=== PATIENT | female | born 1960 | race Caucasian/White ===

== ENCOUNTER 2020-03-24 14:45 | Inpatient (IN) ==
[2020-03-24 15:14] LABS: ABG Base Excess -11 mEq/L (-2 to 3); ABG HCO3 18 mEq/L (21-27); ABG Oxygen Saturation 99 % (95-98); ABG PCO2 51 mmHg (35-45); ABG PH 7.16 pH Units (7.32-7.45); ABG PO2 179 mmHg (85-104); ABG TCO2 20 mEq/L (20-26)
[2020-03-24] MEDS ORDERED: DilTIAZem 50 MG/50 ML IV.SOLN IVC SCH (15:15)
[2020-03-24 15:17] LABS: Prothrombin Time 11.4 Seconds (9.4-12.1)
[2020-03-24] MEDS ORDERED: Isovue-370 500 ML BOTTLE IVP ONE (15:30)
[2020-03-24 15:36] LABS: BUN/Creatinine Ratio 15 (6-26); Blood Urea Nitrogen 8 mg/dL (8-23); Calcium 9.3 mg/dL (8.6-10.3); Carbon Dioxide 17 mEq/L (23-29); Chloride 91 mEq/L (98-107); Glucose 279 mg/dL (70-105); Osmolality,Calculated 270 (280-300); Potassium 4.6 mEq/L (3.5-5.1); Sodium 126 mEq/L (136-145); Troponin I 0.03 ng/mL (< 0.04); eGFR For African Americans > 60 (> 60); eGFR For Non-African Americans > 60 (> 60)
[2020-03-24 15:37] LABS: Basophils # 0.1 K/mcL (0.0-0.2); Basophils % 0.3 %; Eosinophils % 0.1 %; Hematocrit 40.4 % (35.3-44.9); Hemoglobin 13.2 g/dL (11.5-15.4); Immature Granulocytes % 0.9 % (0-4); Lymphocytes # 2.2 K/mcL (0.6-4.6); Lymphocytes % 12.1 %; Mean Corpuscular HGB Conc 32.7 g/dL (31.6-35.5); Mean Corpuscular Hemoglobin 32.4 pg (28.0-33.3); Mean Platelet Volume 12.1 fL (9.4-12.4); Monocytes # 0.4 K/mcL (0.0-1.3); Monocytes % 2.4 %; Neutrophils # 15.4 K/mcL (1.6-8.9); Platelet Count 260 K/mcL (140-400); Red Blood Count 4.08 M/mcL (3.82-4.97); Red Cell Distribution Width 11.9 % (11.5-14.5); Segmented Neutrophils % 84.2 %; White Blood Count 18.3 K/mcL (4.3-11.1)
[2020-03-24] MEDS ORDERED: Furosemide 40 MG/4 ML VIAL IVP ONE (16:16)
[2020-03-24 16:37] LABS: Adenovirus Not Detected (Not Detect); Bordetella Pertussis Not Detected (Not Detect); Chlamydophila pneumoniae Not Detected (Not Detect); Coronavirus 229E Not Detected (Not Detect); Coronavirus HKU1 Not Detected (Not Detect); Coronavirus NL63 Not Detected (Not Detect); Coronavirus OC43 Not Detected (Not Detect); Human Metapneumovirus Not Detected (Not Detect); Human Rhinovirus/Enterovirus Not Detected (Not Detect); Influenza A Subtype 2009 H1 Not Detected (Not Detect); Influenza B Not Detected (Not Detect); Mycoplasma pneumoniae Not Detected (Not Detect); Parainfluenza Virus 1 Not Detected (Not Detect); Parainfluenza Virus 2 Not Detected (Not Detect); Parainfluenza Virus 3 Not Detected (Not Detect); Parainfluenza Virus 4 Not Detected (Not Detect); Respiratory Syncytial Virus Not Detected (Not Detect); SARS-CoV-2 Not Detected (Not Detect)
[2020-03-24 17:17] LABS: ABG Base Excess -2 mEq/L (-2 to 3); ABG HCO3 23 mEq/L (21-27); ABG Oxygen Saturation 100 % (95-98); ABG PCO2 38 mmHg (35-45); ABG PH 7.38 pH Units (7.32-7.45); ABG PO2 203 mmHg (85-104); ABG TCO2 24 mEq/L (20-26)
[2020-03-24] MEDS ORDERED: Insulin Human Regular 100 UNIT in 0.9 % Sodium Chloride 100 ML IVC SCH (17:30)
[2020-03-24] MEDS ORDERED: Perflutren Lipid Microsphere 1.3 ML in 0.9 % Sodium Chloride 8.7 ML IVP PRN (17:56)
[2020-03-24] MEDS ORDERED: D5% in Water 1,000 ML IVC PRN (18:03)
[2020-03-24] MEDS ORDERED: Dextrose Gel 15 GM/37.5 ML TUBE PO PRN ×2 (18:03)
[2020-03-24] MEDS ORDERED: *HR* Dextrose 50 % in Water (Vial) 50 ML VIAL IVP PRN (18:03)
[2020-03-24] MEDS: Levalbuterol Neb 0.63 MG/3 ML IH SCH ×2 (18:12→22:49)
[2020-03-24] MEDS ORDERED: Ondansetron 4 MG/2 ML VIAL IVP PRN (18:13)
[2020-03-24] MEDS ORDERED: Naloxone 0.4 MG/ML INJ IVP PRN (18:13)
[2020-03-24] MEDS ORDERED: Acetaminophen 325 MG TABLET PO PRN (18:13)
[2020-03-24] MEDS ORDERED: Insulin DETEMIR 100 UNIT/ML X5UNITS SUBQ SCH (18:15)
[2020-03-24] MEDS: Insulin DETEMIR 100 UNIT/ML X5UNITS SUBQ SCH (18:55)
[2020-03-24 19:05] LABS: Lipase 13 Units/L (11-82)
[2020-03-24] MEDS: Insulin LISPRO 300 UNITS/3 ML VIAL SUBQ SCH (22:10)
[2020-03-24] MEDS ORDERED: *HR* Heparin 5,000 UNIT/ML VIAL IVP PRN (23:23)
[2020-03-24] MEDS ORDERED: *HR* Heparin 5,000 UNIT/ML VIAL IVP ONE (23:23)
[2020-03-25 00:30] LABS: Hematocrit 33.2 % (35.3-44.9); Mean Corpuscular HGB Conc 34.3 g/dL (31.6-35.5); Mean Corpuscular Hemoglobin 32.8 pg (28.0-33.3); Mean Corpuscular Volume 95.4 fL (83.0-100.0); Mean Platelet Volume 11.5 fL (9.4-12.4); Platelet Count 202 K/mcL (140-400); Red Blood Count 3.48 M/mcL (3.82-4.97)
[2020-03-25 00:31] LABS: Hemoglobin 11.4 g/dL (11.5-15.4); White Blood Count 8.4 K/mcL (4.3-11.1)
[2020-03-25 00:41] LABS: Heparin anti-factor XA UFH < 0.04 IU/mL (0.30-0.70); Prothrombin Time 11.8 Seconds (9.4-12.1)
[2020-03-25] MEDS: Heparin 25,000UNIT/250ML 1/2NS 25,000 UNIT/250 ML IV.SOLN IVC SCH (01:19)
[2020-03-25 02:47] LABS: Hematocrit 33.9 % (35.3-44.9); Hemoglobin 11.5 g/dL (11.5-15.4); Mean Corpuscular HGB Conc 33.9 g/dL (31.6-35.5); Mean Corpuscular Hemoglobin 32.2 pg (28.0-33.3); Mean Platelet Volume 11.5 fL (9.4-12.4); Platelet Count 196 K/mcL (140-400); Red Blood Count 3.57 M/mcL (3.82-4.97); White Blood Count 10.1 K/mcL (4.3-11.1)
[2020-03-25 02:48] LABS: VBG HCO3 25 mEq/L (21-27); VBG PCO2 36 mmHg (41-51); VBG PH 7.45 pH Units (7.32-7.42); VBG PO2 220 mmHg (25-50)
[2020-03-25 03:07] LABS: Alanine Aminotransferase 17 Units/L (7-52); Albumin 4.2 g/dL (3.5-5.7); Albumin/Globulin Ratio 1.7 (1.1-2.2); Alkaline Phosphatase 43 Units/L (34-104); Aspartate Amino Transferase 32 Units/L (13-39); BUN/Creatinine Ratio 18 (6-26); Bilirubin,Total 0.5 mg/dL (0.3-1.0); Blood Urea Nitrogen 11 mg/dL (8-23); Calcium 8.9 mg/dL (8.6-10.3); Carbon Dioxide 22 mEq/L (23-29); Chloride 93 mEq/L (98-107); Globulin 2.5 g/dL (2.4-3.5); Glucose 118 mg/dL (70-105); Osmolality,Calculated 266 (280-300); Potassium 4.4 mEq/L (3.5-5.1); Sodium 128 mEq/L (136-145); Total Protein 6.7 g/dL (6.4-8.9); eGFR For African Americans > 60 (> 60); eGFR For Non-African Americans > 60 (> 60)
[2020-03-25] MEDS: Levalbuterol Neb 0.63 MG/3 ML IH SCH ×4 (04:12→23:14)
[2020-03-25] MEDS ORDERED: *HR* Heparin 5,000 UNIT/ML VIAL SQ SCH (06:00)
[2020-03-25] MEDS ORDERED: Aspirin 325 MG TABLET PO ONE (07:45)
[2020-03-25 08:29] LABS: Chol/HDL Ratio 3.2 (0-4.9)
[2020-03-25 08:36] LABS: Troponin I 2.75 ng/mL (< 0.04)
[2020-03-25] MEDS: *HR* Heparin 5,000 UNIT/ML VIAL IVP PRN ×2 (08:47→17:09)
[2020-03-25 09:46] LABS: Bilirubin,Urine Negative (Negative); Blood,Urine Negative (Negative); Clarity,Urine Clear (Clear); Color,Urine Colorless (Yellow); Glucose,Urine (UA) 300 mg/dL (Normal); Hyaline Casts,Urine Few per lpf (None Seen); Ketones,Urine 10 mg/dL (Negative); Leukocyte Esterase,Urine Negative (Negative); Mucus,Urine Few per lpf (None-Few); Nitrite,Urine Negative (Negative); Protein,Urine Negative (Neg-Trace); RBC,Urine 0-3 per hpf (0-3); Specific Gravity,Urine 1.023 (1.010-1.025); Squamous Epithelial Cell,Urine Few per hpf (None-Few); Urobilinogen,Urine Normal (Normal); WBC,Urine 0-3 per hpf (0-3)
[2020-03-25] MEDS: Furosemide 40 MG/4 ML VIAL IVP SCH ×2 (10:02→20:16)
[2020-03-25] MEDS: Metoprolol XL (24 HR) Succ 25 MG TAB.ER.24H PO SCH (10:03)
[2020-03-25] MEDS: Insulin LISPRO 300 UNITS/3 ML VIAL SUBQ SCH ×6 (10:09→20:17)
[2020-03-25] MEDS: Insulin DETEMIR 100 UNIT/ML X5UNITS SUBQ SCH (10:20)
[2020-03-25] MEDS: Mirtazapine 15 MG TABLET PO SCH (20:16)
[2020-03-26] MEDS: Heparin 25,000UNIT/250ML 1/2NS 25,000 UNIT/250 ML IV.SOLN IVC SCH ×2 (03:03→19:55)
[2020-03-26] MEDS: Levalbuterol Neb 0.63 MG/3 ML IH SCH ×4 (04:13→22:30)
[2020-03-26 05:29] LABS: Hemoglobin 11.5 g/dL (11.5-15.4); Mean Corpuscular HGB Conc 33.8 g/dL (31.6-35.5); Mean Corpuscular Hemoglobin 32.6 pg (28.0-33.3); Mean Corpuscular Volume 96.3 fL (83.0-100.0); Mean Platelet Volume 11.4 fL (9.4-12.4); Platelet Count 191 K/mcL (140-400); Red Blood Count 3.53 M/mcL (3.82-4.97); Red Cell Distribution Width 12.2 % (11.5-14.5)
[2020-03-26 05:50] LABS: BUN/Creatinine Ratio 22 (6-26); Blood Urea Nitrogen 15 mg/dL (8-23); Calcium 9.4 mg/dL (8.6-10.3); Carbon Dioxide 29 mEq/L (23-29); Chloride 99 mEq/L (98-107); Glucose 139 mg/dL (70-105); Osmolality,Calculated 287 (280-300); Potassium 3.8 mEq/L (3.5-5.1); Sodium 137 mEq/L (136-145); eGFR For African Americans > 60 (> 60); eGFR For Non-African Americans > 60 (> 60)
[2020-03-26] MEDS: Insulin LISPRO 300 UNITS/3 ML VIAL SUBQ SCH ×4 (08:54→19:41)
[2020-03-26] MEDS: Aspirin 81 MG TAB.CHEW PO SCH (09:03)
[2020-03-26] MEDS: Metoprolol XL (24 HR) Succ 25 MG TAB.ER.24H PO SCH (09:04)
[2020-03-26] MEDS: Furosemide 40 MG/4 ML VIAL IVP SCH (09:04)
[2020-03-26] MEDS: lisinopriL 5 MG TABLET PO SCH (11:33)
[2020-03-26] MEDS: Insulin DETEMIR 100 UNIT/ML X5UNITS SUBQ SCH (11:33)
[2020-03-26] MEDS: Mirtazapine 15 MG TABLET PO SCH (19:54)
[2020-03-26] MEDS: Famotidine 20 MG TABLET PO SCH (19:54)
[2020-03-27 04:06] LABS: Hematocrit 34.1 % (35.3-44.9); Hemoglobin 11.5 g/dL (11.5-15.4); Mean Corpuscular HGB Conc 33.7 g/dL (31.6-35.5); Mean Corpuscular Hemoglobin 32.8 pg (28.0-33.3); Mean Corpuscular Volume 97.2 fL (83.0-100.0); Mean Platelet Volume 11.7 fL (9.4-12.4); Platelet Count 203 K/mcL (140-400); Red Blood Count 3.51 M/mcL (3.82-4.97); Red Cell Distribution Width 12.1 % (11.5-14.5); White Blood Count 7.7 K/mcL (4.3-11.1)
[2020-03-27] MEDS: Levalbuterol Neb 0.63 MG/3 ML IH SCH ×4 (04:32→22:32)
[2020-03-27 06:56] LABS: BUN/Creatinine Ratio 25 (6-26); Blood Urea Nitrogen 17 mg/dL (8-23); Calcium 9.6 mg/dL (8.6-10.3); Carbon Dioxide 27 mEq/L (23-29); Chloride 98 mEq/L (98-107); Glucose 155 mg/dL (70-105); Osmolality,Calculated 281 (280-300); Potassium 3.7 mEq/L (3.5-5.1); Sodium 133 mEq/L (136-145); eGFR For African Americans > 60 (> 60); eGFR For Non-African Americans > 60 (> 60)
[2020-03-27] MEDS: Famotidine 20 MG TABLET PO SCH ×2 (08:56→19:56)
[2020-03-27] MEDS: Insulin DETEMIR 100 UNIT/ML X5UNITS SUBQ SCH (08:58)
[2020-03-27] MEDS: Insulin LISPRO 300 UNITS/3 ML VIAL SUBQ SCH ×4 (08:58→19:58)
[2020-03-27] MEDS: Metoprolol XL (24 HR) Succ 25 MG TAB.ER.24H PO SCH (08:58)
[2020-03-27] MEDS: Aspirin 81 MG TAB.CHEW PO SCH (08:58)
[2020-03-27] MEDS ORDERED: Furosemide 40 MG/4 ML VIAL IVP SCH (09:00)
[2020-03-27] MEDS: lisinopriL 5 MG TABLET PO SCH (10:43)
[2020-03-27] MEDS: Heparin 25,000UNIT/250ML 1/2NS 25,000 UNIT/250 ML IV.SOLN IVC SCH (19:56)
[2020-03-27] MEDS: Mirtazapine 15 MG TABLET PO SCH (19:56)
[2020-03-27] MEDS ORDERED: Levalbuterol Neb 0.63 MG/3 ML IH PRN (23:15)
[2020-03-28 03:04] LABS: Hematocrit 33.7 % (35.3-44.9); Hemoglobin 11.1 g/dL (11.5-15.4); Mean Corpuscular HGB Conc 32.9 g/dL (31.6-35.5); Mean Corpuscular Hemoglobin 32.3 pg (28.0-33.3); Mean Platelet Volume 11.5 fL (9.4-12.4); Platelet Count 208 K/mcL (140-400); Red Blood Count 3.44 M/mcL (3.82-4.97); Red Cell Distribution Width 12.1 % (11.5-14.5); White Blood Count 7.2 K/mcL (4.3-11.1)
[2020-03-28 03:22] LABS: BUN/Creatinine Ratio 24 (6-26); Blood Urea Nitrogen 19 mg/dL (8-23); Calcium 9.5 mg/dL (8.6-10.3); Carbon Dioxide 26 mEq/L (23-29); Chloride 102 mEq/L (98-107); Glucose 142 mg/dL (70-105); Osmolality,Calculated 287 (280-300); Potassium 3.9 mEq/L (3.5-5.1); Sodium 136 mEq/L (136-145); eGFR For African Americans > 60 (> 60); eGFR For Non-African Americans > 60 (> 60)
[2020-03-28] MEDS: Aspirin 81 MG TAB.CHEW PO SCH (08:09)
[2020-03-28] MEDS: Furosemide 20 MG TABLET PO SCH (08:09)
[2020-03-28] MEDS: lisinopriL 5 MG TABLET PO SCH (08:10)
[2020-03-28] MEDS: Famotidine 20 MG TABLET PO SCH ×2 (08:10→20:11)
[2020-03-28] MEDS: Metoprolol XL (24 HR) Succ 25 MG TAB.ER.24H PO SCH (08:11)
[2020-03-28] MEDS ORDERED: *HR* Heparin 10,000 UNIT/10 ML VIAL ONE (08:29)
[2020-03-28] MEDS ORDERED: Heparin 1,000 UNITS/500 mL 500 ML ONE (08:29)
[2020-03-28] MEDS ORDERED: 0.9 % Sodium Chloride 2,000 ML ONE (08:29)
[2020-03-28] MEDS ORDERED: ISOVUE-370 200 ML INFUS..BTL ONE (08:29)
[2020-03-28] MEDS ORDERED: *HR* Midazolam HCl 2 MG/2 ML VIAL ONE (08:29)
[2020-03-28] MEDS ORDERED: *HR* FentaNYL (PF) 100 MCG/2 ML VIAL ONE (08:29)
[2020-03-28] MEDS ORDERED: Nitroglycerin 1,000 MCG/10 ML VIAL IV ONE (08:29)
[2020-03-28] MEDS: Insulin LISPRO 300 UNITS/3 ML VIAL SUBQ SCH ×4 (08:36→20:14)
[2020-03-28] MEDS: Insulin DETEMIR 100 UNIT/ML X5UNITS SUBQ SCH (08:37)
[2020-03-28] MEDS ORDERED: Furosemide 40 MG TABLET PO SCH (09:00)
[2020-03-28] MEDS: Mirtazapine 15 MG TABLET PO SCH (20:11)
[2020-03-28] MEDS: Heparin 25,000UNIT/250ML 1/2NS 25,000 UNIT/250 ML IV.SOLN IVC SCH (20:12)
[2020-03-29 02:12] LABS: Hematocrit 33.5 % (35.3-44.9); Hemoglobin 11.3 g/dL (11.5-15.4); Mean Corpuscular HGB Conc 33.7 g/dL (31.6-35.5); Mean Corpuscular Hemoglobin 32.5 pg (28.0-33.3); Mean Corpuscular Volume 96.3 fL (83.0-100.0); Mean Platelet Volume 11.4 fL (9.4-12.4); Platelet Count 208 K/mcL (140-400); Red Blood Count 3.48 M/mcL (3.82-4.97); Red Cell Distribution Width 12.2 % (11.5-14.5); White Blood Count 7.9 K/mcL (4.3-11.1)
[2020-03-29 02:25] LABS: BUN/Creatinine Ratio 31 (6-26); Blood Urea Nitrogen 18 mg/dL (8-23); Calcium 9.3 mg/dL (8.6-10.3); Carbon Dioxide 24 mEq/L (23-29); Chloride 103 mEq/L (98-107); Glucose 135 mg/dL (70-105); Osmolality,Calculated 284 (280-300); Potassium 3.9 mEq/L (3.5-5.1); Sodium 135 mEq/L (136-145); eGFR For African Americans > 60 (> 60); eGFR For Non-African Americans > 60 (> 60)
[2020-03-29 08:34] VITALS: BP 109/70
[2020-03-29] MEDS: lisinopriL 5 MG TABLET PO SCH (08:42)
[2020-03-29] MEDS: Famotidine 20 MG TABLET PO SCH (08:42)
[2020-03-29] MEDS: Insulin LISPRO 300 UNITS/3 ML VIAL SUBQ SCH (08:43)
[2020-03-29] MEDS: Furosemide 20 MG TABLET PO SCH (08:43)
[2020-03-29] MEDS: Metoprolol XL (24 HR) Succ 25 MG TAB.ER.24H PO SCH (08:43)
[2020-03-29] MEDS: Aspirin 81 MG TAB.CHEW PO SCH (08:43)
[2020-03-29] MEDS: Insulin DETEMIR 100 UNIT/ML X5UNITS SUBQ SCH (08:45)
== END 2020-03-29 11:23 | disposition home or self-care (01) | DRG 280 ==
LOC: EMEROOARM 14:45 → 2NNU 20:02 → SUATTDRO 20:02 → 2NNU 21:12
PROVIDERS: ADMIT Internal Medicine; ATTEND Internal Medicine

== ENCOUNTER 2021-02-26 19:40 | Inpatient (IN) ==
[2021-02-26] MEDS ORDERED: Ondansetron 4 MG/2 ML VIAL ONE (19:48)
[2021-02-26] MEDS ORDERED: 0.9 % Sodium Chloride 1,000 ML IVC ONE ×3 (19:49→21:07)
[2021-02-26] MEDS ORDERED: Ondansetron 4 MG/2 ML VIAL IVP ONE (19:50)
[2021-02-26] MEDS ORDERED: Metoclopramide 10 MG/2 ML VIAL IVP STA (20:05)
[2021-02-26 20:21] LABS: Basophils # 0.2 K/mcL (0.0-0.2); Hematocrit 37.3 % (35.3-44.9); Hemoglobin 12.1 g/dL (11.5-15.4); Mean Corpuscular HGB Conc 32.4 g/dL (31.6-35.5); Mean Corpuscular Hemoglobin 31.7 pg (28.0-33.3); Mean Corpuscular Volume 97.6 fL (83.0-100.0); Mean Platelet Volume 11.3 fL (9.4-12.4); Platelet Count 317 K/mcL (140-400); Red Blood Count 3.82 M/mcL (3.82-4.97); Red Cell Distribution Width 12.7 % (11.5-14.5); White Blood Count 15.2 K/mcL (4.3-11.1)
[2021-02-26 20:24] LABS: Bilirubin,Urine Negative (Negative); Blood,Urine Trace (Negative); Clarity,Urine Clear (Clear); Color,Urine Colorless (Yellow); Glucose,Urine (UA) Normal (Normal); Ketones,Urine Trace mg/dL (Negative); Leukocyte Esterase,Urine Negative (Negative); Nitrite,Urine Negative (Negative); Protein,Urine Negative (Neg-Trace); Specific Gravity,Urine 1.006 (1.010-1.025); Urobilinogen,Urine Normal (Normal); WBC,Urine 0-3 per hpf (0-3)
[2021-02-26 20:42] LABS: Alanine Aminotransferase 19 Units/L (7-52); Albumin 4.1 g/dL (3.5-5.7); Albumin/Globulin Ratio 1.5 (1.1-2.2); Alkaline Phosphatase 42 Units/L (34-104); Aspartate Amino Transferase 14 Units/L (13-39); BUN/Creatinine Ratio 9 (6-26); Bilirubin,Total 0.2 mg/dL (0.3-1.0); Blood Urea Nitrogen 5 mg/dL (8-23); Carbon Dioxide 17 mEq/L (23-29); Chloride 97 mEq/L (98-107); Ethanol 370 mg/dL (Less than 10); Globulin 2.8 g/dL (2.4-3.5); Glucose 187 mg/dL (70-105); Lipase 163 Units/L (11-82); Magnesium 1.5 mg/dL (1.6-2.6); Osmolality,Calculated 278 (280-300); Phosphorous 2.9 mg/dL (2.7-4.5); Potassium 3.2 mEq/L (3.5-5.1); Sodium 133 mEq/L (136-145); Total Protein 6.9 g/dL (6.4-8.9); eGFR For African Americans > 60 (> 60); eGFR For Non-African Americans > 60 (> 60)
[2021-02-26 20:52] LABS: Eosinophils # 0.6 K/mcL (0.0-0.6); Lymphocytes # 7.1 K/mcL (0.6-4.6); Monocytes # 0.6 K/mcL (0.0-1.3); Neutrophils # 6.7 K/mcL (1.6-8.9); Platelet Estimate Normal (Normal)
[2021-02-26] MEDS ORDERED: Thiamine (B-1) 100 MG in 0.9 % Sodium Chloride 50 ML IVPB STA (21:03)
[2021-02-26 21:49] LABS: VBG HCO3 19 mEq/L (21-27); VBG PCO2 51 mmHg (41-51); VBG PH 7.17 pH Units (7.32-7.42); VBG PO2 60 mmHg (25-50)
[2021-02-26] MEDS ORDERED: Magnesium Sulfate 1 GM/102 ML PIGGYBACK IVPB ONE (22:21)
[2021-02-26] MEDS ORDERED: D5% in Water 1,000 ML IVC PRN (22:23)
[2021-02-26] MEDS ORDERED: *HR* Dextrose 50 % in Water (Syg) 50 ML SYRINGE IVP PRN (22:23)
[2021-02-26] MEDS ORDERED: Dextrose Gel 15 GM/37.5 ML TUBE PO PRN ×2 (22:23)
[2021-02-26] MEDS ORDERED: *HR* LORazepam 2 MG/ML VIAL IVP PRN (22:27)
[2021-02-26] MEDS ORDERED: Naloxone 0.4 MG/ML INJ IVP PRN (22:39)
[2021-02-26] MEDS ORDERED: Prochlorperazine 10 MG/2 ML VIAL IVP PRN (22:43)
[2021-02-26 22:52] LABS: Amphetamine Screen,Urine Negative ng/mL (Cutoff=1000); Barbiturate Screen,Urine Negative ng/mL (Cutoff=200); Benzodiazepines Screen,Urine Negative ng/mL (Cutoff=200); Cannabinoid Screen,Urine Negative ng/mL (Cutoff = 50); Cocaine Screen,Urine Negative ng/mL (Cutoff= 300); Opiate Screen,Urine Negative ng/mL (Cutoff=300); Phencyclidine Screen,Urine Negative ng/mL (Cutoff=25)
[2021-02-27 00:01] LABS: ABG Base Excess -11 mEq/L (-2 to 3); ABG HCO3 16 mEq/L (21-27); ABG Oxygen Saturation 87 % (95-98); ABG PCO2 41 mmHg (35-45); ABG PO2 64 mmHg (85-104); ABG TCO2 18 mEq/L (20-26)
[2021-02-27] MEDS ORDERED: Perflutren Lipid Microsphere 1.3 ML in 0.9 % Sodium Chloride 8.7 ML IVP PRN (00:25)
[2021-02-27] MEDS: Insulin LISPRO 300 UNITS/3 ML VIAL SUBQ SCH ×4 (00:28→18:17)
[2021-02-27 01:13] LABS: Hematocrit 35.6 % (35.3-44.9); Hemoglobin 11.4 g/dL (11.5-15.4); Mean Corpuscular Hemoglobin 31.5 pg (28.0-33.3); Mean Corpuscular Volume 98.3 fL (83.0-100.0); Mean Platelet Volume 11.2 fL (9.4-12.4); Platelet Count 284 K/mcL (140-400); Red Blood Count 3.62 M/mcL (3.82-4.97); Red Cell Distribution Width 12.7 % (11.5-14.5); White Blood Count 18.9 K/mcL (4.3-11.1)
[2021-02-27 01:21] LABS: Prothrombin Time 10.8 Seconds (9.4-12.1)
[2021-02-27] MEDS: *HR* LORazepam 2 MG/ML VIAL IVP PRN ×3 (01:21→20:40)
[2021-02-27 01:23] LABS: Activated Partial Thrombo Time 28.8 Seconds (26.0-36.0)
[2021-02-27 01:27] LABS: BUN/Creatinine Ratio 8 (6-26); Blood Urea Nitrogen 4 mg/dL (8-23); Calcium 7.5 mg/dL (8.6-10.3); Carbon Dioxide 16 mEq/L (23-29); Chloride 103 mEq/L (98-107); Chol/HDL Ratio 3.3 (0-4.9); Cholesterol 97 mg/dL (< 200); Glucose 248 mg/dL (70-105); HDL Cholesterol 29 mg/dL (40-59); LDL Cholesterol,Calculated 27 mg/dL (< 100); Osmolality,Calculated 281 (280-300); Potassium 3.6 mEq/L (3.5-5.1); Sodium 133 mEq/L (136-145); Triglycerides 203 mg/dL (< 150); eGFR For African Americans > 60 (> 60); eGFR For Non-African Americans > 60 (> 60)
[2021-02-27 01:29] LABS: Iron 21 mcg/dL (50-170)
[2021-02-27] MEDS ORDERED: Isovue-370 500 ML BOTTLE IVP ONE (01:31)
[2021-02-27 01:50] LABS: Ferritin 33 ng/mL (10-120)
[2021-02-27 04:05] LABS: Influenza A PCR Negative (Negative); Influenza B PCR Negative (Negative); Resp. Syncytial Virus PCR Negative (Negative)
[2021-02-27 04:09] LABS: % Iron Saturation 5 % (15-50); Transferrin 273 mg/dL (203-362)
[2021-02-27 04:09] LABS: SARS-CoV-2 by PCR (In House) Positive (Negative)
[2021-02-27] MEDS: D5% in 0.9% NACL 1,000 ML IVC SCH ×2 (04:09→07:02)
[2021-02-27] MEDS: *HR* Heparin 5,000 UNIT/ML VIAL SQ SCH ×3 (07:01→22:20)
[2021-02-27 07:23] LABS: Magnesium 1.4 mg/dL (1.6-2.6); Phosphorous 2.7 mg/dL (2.7-4.5)
[2021-02-27] MEDS: Aspirin Enteric Coated 81 MG Tablet PO SCH (07:38)
[2021-02-27 09:22] LABS: Estimated Average Glucose 169 mg/dl; Hemoglobin A1C 7.5 %
[2021-02-27] MEDS ORDERED: *HR* Metoprolol 5 MG/5 ML VIAL IVP ONE (09:41)
[2021-02-27] MEDS ORDERED: Ipratropium/Albuterol Neb 3 ML ONE (09:53)
[2021-02-27 10:11] LABS: ABG Base Excess -6 mEq/L (-2 to 3); ABG HCO3 22 mEq/L (21-27); ABG Oxygen Saturation 77 % (95-98); ABG PCO2 49 mmHg (35-45); ABG PH 7.25 pH Units (7.32-7.45); ABG PO2 48 mmHg (85-104); ABG TCO2 23 mEq/L (20-26)
[2021-02-27] MEDS ORDERED: D5% in Lactated Ringers 1,000 ML IVC SCH (10:15)
[2021-02-27] MEDS: Dexmedetomidine HCl 400 MCG/100 ML MLS IVC SCH ×2 (10:52→22:41)
[2021-02-27] MEDS ORDERED: Potassium Phosphate 44 MEQ in 0.9 % Sodium Chloride 250 ML IVPB PRN (11:11)
[2021-02-27] MEDS ORDERED: Potassium Chloride 40 MEQ/200 ML BAG IVPB PRN (11:11)
[2021-02-27 13:02] LABS: Alanine Aminotransferase 81 Units/L (7-52); Albumin 3.7 g/dL (3.5-5.7); Albumin/Globulin Ratio 1.5 (1.1-2.2); Alkaline Phosphatase 46 Units/L (34-104); Amylase 41 Units/L (29-103); Aspartate Amino Transferase 51 Units/L (13-39); Bilirubin,Direct 0.1 mg/dL (0.0-0.2); Bilirubin,Indirect 0.3 mg/dL (0.0-1.0); Bilirubin,Total 0.4 mg/dL (0.3-1.0); Globulin 2.5 g/dL (2.4-3.5); Total Protein 6.2 g/dL (6.4-8.9)
[2021-02-27 13:04] LABS: C-Reactive Protein < 5 mg/L (Less than 10)
[2021-02-27 13:19] LABS: Ferritin 27 ng/mL (10-120)
[2021-02-27] MEDS: Calcium Gluconate 1gm/50mL 1 GM/50 ML BAG IVPB PRN (13:20)
[2021-02-27] MEDS: Albumin 25% 25gram/100mL 25 GM/100 ML IV.SOLN IVC SCH ×2 (15:08→16:38)
[2021-02-27] MEDS: Norepinephrine 4 MG/254 ML IV.SOLN IVC SCH (17:47)
[2021-02-27] MEDS ORDERED: Thiamine (B-1) 100 MG, Folic Acid 1 MG, MVI, adult with vitamin K 10 ML in 0.9 % Sodi... IVPB SCH (18:00)
[2021-02-27] MEDS ORDERED: Remdesivir 200 MG in 0.9 % Sodium Chloride 100 ML IVPB ONE (20:00)
[2021-02-27 21:02] LABS: BUN/Creatinine Ratio 12 (6-26); Blood Urea Nitrogen 9 mg/dL (8-23); Calcium 7.7 mg/dL (8.6-10.3); Carbon Dioxide 23 mEq/L (23-29); Chloride 100 mEq/L (98-107); Glucose 411 mg/dL (70-105); Osmolality,Calculated 288 (280-300); Potassium 5.5 mEq/L (3.5-5.1); Sodium 131 mEq/L (136-145); eGFR For African Americans > 60 (> 60); eGFR For Non-African Americans > 60 (> 60)
[2021-02-27 21:14] LABS: VBG HCO3 21 mEq/L (21-27); VBG Ionized Calcium 1.07 mmol/L (1.15-1.35); VBG PCO2 63 mmHg (41-51); VBG PH 7.12 pH Units (7.32-7.42); VBG PO2 64 mmHg (25-50)
[2021-02-27 22:40] LABS: ABG Base Excess -3 mEq/L (-2 to 3); ABG HCO3 22 mEq/L (21-27); ABG Oxygen Saturation 100 % (95-98); ABG PCO2 35 mmHg (35-45); ABG PH 7.41 pH Units (7.32-7.45); ABG PO2 169 mmHg (85-104); ABG TCO2 23 mEq/L (20-26)
[2021-02-28] MEDS: Insulin LISPRO 300 UNITS/3 ML VIAL SUBQ SCH ×5 (00:21→23:45)
[2021-02-28] MEDS: Pantoprazole 40 MG VIAL IVP SCH ×2 (01:50→09:28)
[2021-02-28] MEDS: Norepinephrine 4 MG/254 ML IV.SOLN IVC SCH ×2 (04:03→19:33)
[2021-02-28 04:04] LABS: Hematocrit 31.3 % (35.3-44.9); Hemoglobin 9.9 g/dL (11.5-15.4); Mean Corpuscular HGB Conc 31.6 g/dL (31.6-35.5); Mean Corpuscular Hemoglobin 30.8 pg (28.0-33.3); Mean Corpuscular Volume 97.5 fL (83.0-100.0); Mean Platelet Volume 11.7 fL (9.4-12.4); Platelet Count 213 K/mcL (140-400); Red Blood Count 3.21 M/mcL (3.82-4.97); Red Cell Distribution Width 12.9 % (11.5-14.5); White Blood Count 10.9 K/mcL (4.3-11.1)
[2021-02-28 04:04] LABS: VBG Ionized Calcium 1.09 mmol/L (1.15-1.35)
[2021-02-28 04:11] LABS: Albumin 3.9 g/dL (3.5-5.7); Albumin/Globulin Ratio 2.3 (1.1-2.2); Bilirubin,Direct 0.1 mg/dL (0.0-0.2); Bilirubin,Indirect 0.3 mg/dL (0.0-1.0); Bilirubin,Total 0.4 mg/dL (0.3-1.0); Globulin 1.7 g/dL (2.4-3.5); Total Protein 5.6 g/dL (6.4-8.9)
[2021-02-28 04:12] LABS: Alanine Aminotransferase 95 Units/L (7-52); Albumin 3.8 g/dL (3.5-5.7); Albumin/Globulin Ratio 2.1 (1.1-2.2); Alkaline Phosphatase 41 Units/L (34-104); Aspartate Amino Transferase 70 Units/L (13-39); BUN/Creatinine Ratio 14 (6-26); Bilirubin,Total 0.4 mg/dL (0.3-1.0); Blood Urea Nitrogen 12 mg/dL (8-23); Calcium 7.7 mg/dL (8.6-10.3); Carbon Dioxide 24 mEq/L (23-29); Chloride 102 mEq/L (98-107); Globulin 1.8 g/dL (2.4-3.5); Glucose 280 mg/dL (70-105); Magnesium 2.1 mg/dL (1.6-2.6); Osmolality,Calculated 284 (280-300); Phosphorous 3.2 mg/dL (2.7-4.5); Potassium 5.6 mEq/L (3.5-5.1); Sodium 132 mEq/L (136-145); Total Protein 5.6 g/dL (6.4-8.9); eGFR For African Americans > 60 (> 60); eGFR For Non-African Americans > 60 (> 60)
[2021-02-28] MEDS: *HR* Heparin 5,000 UNIT/ML VIAL SQ SCH ×3 (05:46→20:26)
[2021-02-28] MEDS: Calcium Gluconate 1gm/50mL 1 GM/50 ML BAG IVPB PRN (05:46)
[2021-02-28] MEDS: Dexmedetomidine HCl 400 MCG/100 ML MLS IVC SCH (07:00)
[2021-02-28] MEDS: Aspirin Enteric Coated 81 MG Tablet PO SCH (09:29)
[2021-02-28] MEDS: *HR* LORazepam 2 MG/ML VIAL IVP PRN ×2 (12:23→20:44)
[2021-02-28] MEDS: Insulin DETEMIR 100 UNIT/ML X5UNITS SUBQ SCH ×2 (13:20→20:30)
[2021-02-28] MEDS: Multivit/Ca/Min/Fe/FA 1 TAB TABLET PO SCH (16:07)
[2021-02-28] MEDS: Thiamine (B-1) 100 MG TABLET PO SCH (16:07)
[2021-02-28] MEDS: Folic Acid 1 MG TABLET PO SCH (16:08)
[2021-02-28 17:19] LABS: VBG Ionized Calcium 1.15 mmol/L (1.15-1.35)
[2021-02-28] MEDS ORDERED: Remdesivir 100 MG in 0.9 % Sodium Chloride 100 ML IVPB SCH (20:00)
[2021-03-01] MEDS: Norepinephrine 4 MG/254 ML IV.SOLN IVC SCH (00:06)
[2021-03-01 05:01] LABS: Alanine Aminotransferase 86 Units/L (7-52); Albumin 3.6 g/dL (3.5-5.7); Albumin/Globulin Ratio 1.9 (1.1-2.2); Alkaline Phosphatase 39 Units/L (34-104); Aspartate Amino Transferase 41 Units/L (13-39); BUN/Creatinine Ratio 24 (6-26); Bilirubin,Direct 0.1 mg/dL (0.0-0.2); Bilirubin,Indirect 0.5 mg/dL (0.0-1.0); Bilirubin,Total 0.6 mg/dL (0.3-1.0); Blood Urea Nitrogen 21 mg/dL (8-23); Calcium 8.6 mg/dL (8.6-10.3); Carbon Dioxide 26 mEq/L (23-29); Chloride 102 mEq/L (98-107); Globulin 1.9 g/dL (2.4-3.5); Glucose 177 mg/dL (70-105); Osmolality,Calculated 287 (280-300); Potassium 4.7 mEq/L (3.5-5.1); Sodium 135 mEq/L (136-145); Total Protein 5.5 g/dL (6.4-8.9); eGFR For African Americans > 60 (> 60); eGFR For Non-African Americans > 60 (> 60)
[2021-03-01] MEDS: *HR* Heparin 5,000 UNIT/ML VIAL SQ SCH ×3 (05:15→20:44)
[2021-03-01] MEDS: Insulin LISPRO 300 UNITS/3 ML VIAL SUBQ SCH ×3 (05:39→17:24)
[2021-03-01] MEDS: Pantoprazole 40 MG VIAL IVP SCH (08:16)
[2021-03-01] MEDS: Folic Acid 1 MG TABLET PO SCH (08:17)
[2021-03-01] MEDS: Thiamine (B-1) 100 MG TABLET PO SCH (08:17)
[2021-03-01] MEDS: Multivit/Ca/Min/Fe/FA 1 TAB TABLET PO SCH (08:17)
[2021-03-01] MEDS: Aspirin Enteric Coated 81 MG Tablet PO SCH (08:17)
[2021-03-01] MEDS: Insulin DETEMIR 100 UNIT/ML X5UNITS SUBQ SCH ×2 (08:19→20:58)
[2021-03-01] MEDS: Dexmedetomidine HCl 400 MCG/100 ML MLS IVC SCH (08:37)
[2021-03-01] MEDS ORDERED: Aspirin Enteric Coated 81 MG Tablet PO SCH (09:00)
[2021-03-01] MEDS ORDERED: Furosemide 20 MG TABLET PO SCH (09:00)
[2021-03-01 09:04] LABS: Basophils % 0.2 %; Hematocrit 29.9 % (35.3-44.9); Hemoglobin 9.5 g/dL (11.5-15.4); Immature Granulocytes % 0.3 % (0-4); Lymphocytes # 2.2 K/mcL (0.6-4.6); Lymphocytes % 18.7 %; Mean Corpuscular HGB Conc 31.8 g/dL (31.6-35.5); Mean Corpuscular Hemoglobin 31.5 pg (28.0-33.3); Mean Platelet Volume 12.7 fL (9.4-12.4); Monocytes # 0.5 K/mcL (0.0-1.3); Monocytes % 4.6 %; Platelet Count 184 K/mcL (140-400); Red Blood Count 3.02 M/mcL (3.82-4.97); Red Cell Distribution Width 13.2 % (11.5-14.5); Segmented Neutrophils % 76.2 %; White Blood Count 11.8 K/mcL (4.3-11.1)
[2021-03-01 11:16] LABS: Magnesium 2.1 mg/dL (1.6-2.6); Phosphorous 2.7 mg/dL (2.7-4.5)
[2021-03-01] MEDS ORDERED: Naloxone 0.4 MG/ML INJ IVP PRN (12:04)
[2021-03-01] MEDS ORDERED: *HR* Dextrose 50 % in Water (Syg) 50 ML SYRINGE IVP PRN (12:04)
[2021-03-01] MEDS ORDERED: *HR* LORazepam 2 MG/ML VIAL IVP PRN ×3 (12:04)
[2021-03-01] MEDS ORDERED: Norepinephrine 4 MG/254 ML IV.SOLN IVC SCH (12:04)
[2021-03-01] MEDS ORDERED: Calcium Gluconate 1gm/50mL 1 GM/50 ML BAG IVPB PRN (12:04)
[2021-03-01] MEDS ORDERED: Dextrose Gel 15 GM/37.5 ML TUBE PO PRN ×2 (12:04)
[2021-03-01] MEDS ORDERED: Dexmedetomidine HCl 400 MCG/100 ML MLS IVC SCH (12:04)
[2021-03-01] MEDS ORDERED: Prochlorperazine 10 MG/2 ML VIAL IVP PRN (12:04)
[2021-03-01] MEDS ORDERED: Remdesivir 100 MG in 0.9 % Sodium Chloride 100 ML IVPB SCH (20:00)
[2021-03-01] MEDS ORDERED: Mirtazapine 15 MG TABLET PO SCH ×2 (21:00)
[2021-03-02] MEDS: Insulin LISPRO 300 UNITS/3 ML VIAL SUBQ SCH ×3 (00:03→12:25)
[2021-03-02] MEDS: *HR* Heparin 5,000 UNIT/ML VIAL SQ SCH ×2 (05:24→14:25)
[2021-03-02 08:36] LABS: Basophils % 0.3 %; Eosinophils % 0.1 %; Hematocrit 28.9 % (35.3-44.9); Hemoglobin 9.4 g/dL (11.5-15.4); Immature Granulocytes % 0.4 % (0-4); Lymphocytes # 2.5 K/mcL (0.6-4.6); Lymphocytes % 21.8 %; Mean Corpuscular HGB Conc 32.5 g/dL (31.6-35.5); Mean Corpuscular Hemoglobin 31.3 pg (28.0-33.3); Mean Corpuscular Volume 96.3 fL (83.0-100.0); Mean Platelet Volume 12.5 fL (9.4-12.4); Monocytes # 0.6 K/mcL (0.0-1.3); Monocytes % 4.9 %; Neutrophils # 8.4 K/mcL (1.6-8.9); Platelet Count 200 K/mcL (140-400); Red Cell Distribution Width 13.1 % (11.5-14.5); Segmented Neutrophils % 72.5 %; White Blood Count 11.5 K/mcL (4.3-11.1)
[2021-03-02] MEDS ORDERED: Aspirin Enteric Coated 81 MG Tablet PO SCH (09:00)
[2021-03-02] MEDS ORDERED: Furosemide 20 MG TABLET PO SCH (09:00)
[2021-03-02] MEDS ORDERED: Folic Acid 1 MG TABLET PO SCH (09:00)
[2021-03-02] MEDS ORDERED: Thiamine (B-1) 100 MG TABLET PO SCH (09:00)
[2021-03-02 09:10] LABS: Alanine Aminotransferase 59 Units/L (7-52); Albumin/Globulin Ratio 1.7 (1.1-2.2); Alkaline Phosphatase 35 Units/L (34-104); Aspartate Amino Transferase 22 Units/L (13-39); BUN/Creatinine Ratio 28 (6-26); Bilirubin,Total 0.9 mg/dL (0.3-1.0); Blood Urea Nitrogen 17 mg/dL (8-23); Calcium 6.9 mg/dL (8.6-10.3); Carbon Dioxide 21 mEq/L (23-29); Chloride 109 mEq/L (98-107); Globulin 1.8 g/dL (2.4-3.5); Glucose 114 mg/dL (70-105); Osmolality,Calculated 288 (280-300); Potassium 3.1 mEq/L (3.5-5.1); Sodium 138 mEq/L (136-145); Total Protein 4.8 g/dL (6.4-8.9); eGFR For African Americans > 60 (> 60); eGFR For Non-African Americans > 60 (> 60)
[2021-03-02] MEDS: Insulin DETEMIR 100 UNIT/ML X5UNITS SUBQ SCH (10:08)
[2021-03-02 11:44] VITALS: BP 132/76; PULSE 97; TEMP 98.6; O2SAT 91
== END 2021-03-02 16:24 | disposition home or self-care (01) | DRG 896 ==
LOC: 3BNU 19:40 → EMEROOARM 19:40 → SUATTDRO 21:26 → 3BNU 23:24 → 2NNU 02-27 04:53 → ICNU 02-27 12:19 → 3BNU 03-01 17:25
PROVIDERS: ADMIT Internal Medicine; ATTEND Internal Medicine

== ENCOUNTER 2021-04-12 11:31 | Inpatient (IN) ==
[2021-04-12] MEDS ORDERED: Aspirin 81 MG TAB.CHEW PO ONE (11:42)
[2021-04-12 12:11] LABS: Basophils # 0.1 K/mcL (0.0-0.2); Basophils % 0.8 %; Eosinophils % 0.3 %; Hematocrit 37.5 % (35.3-44.9); Hemoglobin 11.8 g/dL (11.5-15.4); Immature Granulocytes % 0.6 % (0-4); Lymphocytes # 2.8 K/mcL (0.6-4.6); Lymphocytes % 19.1 %; Mean Corpuscular HGB Conc 31.5 g/dL (31.6-35.5); Mean Corpuscular Hemoglobin 30.6 pg (28.0-33.3); Mean Corpuscular Volume 97.4 fL (83.0-100.0); Mean Platelet Volume 11.8 fL (9.4-12.4); Monocytes # 0.3 K/mcL (0.0-1.3); Monocytes % 1.9 %; Neutrophils # 11.1 K/mcL (1.6-8.9); Platelet Count 342 K/mcL (140-400); Red Blood Count 3.85 M/mcL (3.82-4.97); Red Cell Distribution Width 13.2 % (11.5-14.5); Segmented Neutrophils % 77.3 %; White Blood Count 14.4 K/mcL (4.3-11.1)
[2021-04-12 12:19] LABS: Prothrombin Time 10.9 Seconds (9.4-12.1)
[2021-04-12 12:21] LABS: Activated Partial Thrombo Time 29.4 Seconds (26.0-36.0)
[2021-04-12] MEDS ORDERED: Furosemide 40 MG/4 ML VIAL IVP ONE (12:22)
[2021-04-12] MEDS ORDERED: Isovue-370 500 ML BOTTLE IVP ONE (12:46)
[2021-04-12 14:26] LABS: BUN/Creatinine Ratio 17 (6-26); Blood Urea Nitrogen 16 mg/dL (8-23); Calcium 9.8 mg/dL (8.6-10.3); Carbon Dioxide 19 mEq/L (23-29); Chloride 97 mEq/L (98-107); Glucose 491 mg/dL (70-105); Osmolality,Calculated 301 (280-300); Potassium 4.6 mEq/L (3.5-5.1); Sodium 134 mEq/L (136-145); eGFR For African Americans > 60 (> 60); eGFR For Non-African Americans > 60 (> 60)
[2021-04-12] MEDS ORDERED: Naloxone 0.4 MG/ML INJ IVP PRN (15:41)
[2021-04-12] MEDS ORDERED: MOM Conc 10 ML UD.LIQ PO PRN (15:41)
[2021-04-12] MEDS ORDERED: Mag Hydrox/Al Hydrox/Simeth 30 ML UDC PO PRN (15:41)
[2021-04-12] MEDS ORDERED: methylPREDNISolone 125 MG/2 ML VIAL IVP ONE (15:42)
[2021-04-12] MEDS ORDERED: *HR* LORazepam 2 MG/ML VIAL IVP PRN ×3 (15:45)
[2021-04-12] MEDS ORDERED: D5% in Water 1,000 ML IVC PRN (15:46)
[2021-04-12] MEDS ORDERED: Dextrose Gel 15 GM/37.5 ML TUBE PO PRN ×2 (15:46)
[2021-04-12] MEDS ORDERED: *HR* Dextrose 50 % in Water (Syg) 50 ML SYRINGE IVP PRN (15:46)
[2021-04-12] MEDS: Levalbuterol Neb 1.25 MG/3 ML IH SCH ×2 (16:10→20:03)
[2021-04-12] MEDS: Insulin LISPRO 300 UNITS/3 ML VIAL SUBQ SCH (20:42)
[2021-04-12] MEDS ORDERED: Melatonin 3 MG TABLET PO PRN (21:00)
[2021-04-12] MEDS ORDERED: *HR* Heparin 5,000 UNIT/ML VIAL IVP ONE (21:45)
[2021-04-12] MEDS ORDERED: *HR* Heparin 5,000 UNIT/ML VIAL IVP PRN (21:45)
[2021-04-12] MEDS: Heparin 25,000UNIT/250ML 1/2NS 25,000 UNIT/250 ML IV.SOLN IVC SCH (22:15)
[2021-04-12 22:44] LABS: Hemoglobin 10.6 g/dL (11.5-15.4); Mean Corpuscular HGB Conc 33.1 g/dL (31.6-35.5); Mean Corpuscular Hemoglobin 31.4 pg (28.0-33.3); Mean Corpuscular Volume 94.7 fL (83.0-100.0); Mean Platelet Volume 11.8 fL (9.4-12.4); Platelet Count 241 K/mcL (140-400); Red Blood Count 3.38 M/mcL (3.82-4.97); Red Cell Distribution Width 13.3 % (11.5-14.5); White Blood Count 9.8 K/mcL (4.3-11.1)
[2021-04-12 23:03] LABS: Heparin anti-factor XA UFH 0.9 IU/mL (0.30-0.70)
[2021-04-12 23:04] LABS: INR 1.1; Prothrombin Time 12.5 Seconds (9.4-12.1)
[2021-04-13] MEDS: Levalbuterol Neb 1.25 MG/3 ML IH SCH ×4 (04:00→19:54)
[2021-04-13 05:37] LABS: Basophils # 0.1 K/mcL (0.0-0.2); Basophils % 0.4 %; Eosinophils # 0.1 K/mcL (0.0-0.6); Hematocrit 30.3 % (35.3-44.9); Hemoglobin 9.8 g/dL (11.5-15.4); Immature Granulocytes % 0.4 % (0-4); Lymphocytes # 3.3 K/mcL (0.6-4.6); Lymphocytes % 28.6 %; Mean Corpuscular HGB Conc 32.3 g/dL (31.6-35.5); Mean Corpuscular Hemoglobin 30.7 pg (28.0-33.3); Mean Platelet Volume 11.7 fL (9.4-12.4); Monocytes # 0.5 K/mcL (0.0-1.3); Monocytes % 4.3 %; Neutrophils # 7.4 K/mcL (1.6-8.9); Platelet Count 223 K/mcL (140-400); Red Blood Count 3.19 M/mcL (3.82-4.97); Red Cell Distribution Width 13.4 % (11.5-14.5); Segmented Neutrophils % 65.3 %; White Blood Count 11.4 K/mcL (4.3-11.1)
[2021-04-13 05:59] LABS: Alanine Aminotransferase 18 Units/L (7-52); Albumin 3.4 g/dL (3.5-5.7); Albumin/Globulin Ratio 1.4 (1.1-2.2); Alkaline Phosphatase 38 Units/L (34-104); Aspartate Amino Transferase 30 Units/L (13-39); BUN/Creatinine Ratio 27 (6-26); Bilirubin,Total 0.7 mg/dL (0.3-1.0); Blood Urea Nitrogen 19 mg/dL (8-23); Carbon Dioxide 28 mEq/L (23-29); Chloride 97 mEq/L (98-107); Globulin 2.4 g/dL (2.4-3.5); Glucose 234 mg/dL (70-105); Osmolality,Calculated 290 (280-300); Potassium 3.7 mEq/L (3.5-5.1); Sodium 135 mEq/L (136-145); Total Protein 5.8 g/dL (6.4-8.9); eGFR For African Americans > 60 (> 60); eGFR For Non-African Americans > 60 (> 60)
[2021-04-13] MEDS ORDERED: *HR* Enoxaparin 40 MG/0.4 ML SYRINGE SQ SCH (06:00)
[2021-04-13] MEDS: *HR* Heparin 5,000 UNIT/ML VIAL IVP PRN (06:26)
[2021-04-13] MEDS ORDERED: Perflutren Lipid Microsphere 1.3 ML in 0.9 % Sodium Chloride 8.7 ML IVP PRN (07:12)
[2021-04-13] MEDS: Aspirin Enteric Coated 81 MG Tablet PO SCH (08:09)
[2021-04-13] MEDS: Vitamin B Complex/Vit C/Vit E 1 EACH TABLET PO SCH (08:09)
[2021-04-13] MEDS: Folic Acid 1 MG TABLET PO SCH (08:09)
[2021-04-13] MEDS: Thiamine (B-1) 100 MG TABLET PO SCH (08:09)
[2021-04-13] MEDS: lisinopriL 5 MG TABLET PO SCH (08:10)
[2021-04-13] MEDS: predniSONE 20 MG TABLET PO SCH (08:10)
[2021-04-13] MEDS: Insulin LISPRO 300 UNITS/3 ML VIAL SUBQ SCH ×5 (08:14→21:37)
[2021-04-13] MEDS ORDERED: Furosemide 40 MG/4 ML VIAL IVP SCH (09:00)
[2021-04-13] MEDS ORDERED: Spironolactone 25 MG TABLET PO SCH (13:45)
[2021-04-13] MEDS ORDERED: 0.9 % Sodium Chloride 250 ML IVC ONE ×2 (20:02→21:32)
[2021-04-13] MEDS ORDERED: Metoprolol XL (24 HR) Succ 50 MG TAB.ER.24H PO SCH (21:00)
[2021-04-13] MEDS: Mirtazapine 15 MG TABLET PO SCH (21:36)
[2021-04-13] MEDS: Insulin DETEMIR 100 UNIT/ML X5UNITS SUBQ SCH (21:37)
[2021-04-14] MEDS: Heparin 25,000UNIT/250ML 1/2NS 25,000 UNIT/250 ML IV.SOLN IVC SCH (00:01)
[2021-04-14] MEDS ORDERED: 0.9 % Sodium Chloride 250 ML IVC ONE (01:12)
[2021-04-14] MEDS: Albumin 25% 25gram/100mL 25 GM/100 ML IV.SOLN IVC SCH ×2 (01:25→03:03)
[2021-04-14] MEDS: Levalbuterol Neb 1.25 MG/3 ML IH SCH ×4 (04:39→19:52)
[2021-04-14 05:53] LABS: Basophils % 0.5 %; Immature Granulocytes % 0.3 % (0-4); Mean Platelet Volume 12.6 fL (9.4-12.4); Red Cell Distribution Width 13.4 % (11.5-14.5)
[2021-04-14 05:55] LABS: Basophils # 0.1 K/mcL (0.0-0.2); Eosinophils % 0.4 %; Hematocrit 28.6 % (35.3-44.9); Hemoglobin 9.5 g/dL (11.5-15.4); Immature Platelets 10.1 % (1.1-6.1); Lymphocytes # 3.2 K/mcL (0.6-4.6); Lymphocytes % 33.6 %; Mean Corpuscular HGB Conc 33.2 g/dL (31.6-35.5); Mean Corpuscular Hemoglobin 31.3 pg (28.0-33.3); Mean Corpuscular Volume 94.1 fL (83.0-100.0); Monocytes # 0.4 K/mcL (0.0-1.3); Neutrophils # 5.9 K/mcL (1.6-8.9); Platelet Count 171 K/mcL (140-400); Red Blood Count 3.04 M/mcL (3.82-4.97); Segmented Neutrophils % 61.2 %; White Blood Count 9.6 K/mcL (4.3-11.1)
[2021-04-14 05:57] LABS: BUN/Creatinine Ratio 29 (6-26); Blood Urea Nitrogen 23 mg/dL (8-23); Calcium 9.7 mg/dL (8.6-10.3); Carbon Dioxide 25 mEq/L (23-29); Chloride 97 mEq/L (98-107); Glucose 258 mg/dL (70-105); Osmolality,Calculated 289 (280-300); Potassium 4.2 mEq/L (3.5-5.1); Sodium 133 mEq/L (136-145); eGFR For African Americans > 60 (> 60); eGFR For Non-African Americans > 60 (> 60)
[2021-04-14 06:40] LABS: Platelet Estimate Normal (Normal)
[2021-04-14] MEDS: Insulin LISPRO 300 UNITS/3 ML VIAL SUBQ SCH ×4 (07:55→20:36)
[2021-04-14] MEDS: Folic Acid 1 MG TABLET PO SCH (09:29)
[2021-04-14] MEDS: Thiamine (B-1) 100 MG TABLET PO SCH (09:29)
[2021-04-14] MEDS: Vitamin B Complex/Vit C/Vit E 1 EACH TABLET PO SCH (09:29)
[2021-04-14] MEDS: Famotidine 20 MG TABLET PO SCH (09:29)
[2021-04-14] MEDS: predniSONE 20 MG TABLET PO SCH (09:29)
[2021-04-14] MEDS: Aspirin Enteric Coated 81 MG Tablet PO SCH (09:30)
[2021-04-14] MEDS: lisinopriL 5 MG TABLET PO SCH (09:32)
[2021-04-14] MEDS: Metoprolol XL (24 HR) Succ 50 MG TAB.ER.24H PO SCH ×2 (11:12→20:37)
[2021-04-14] MEDS: *HR* Heparin 5,000 UNIT/ML VIAL IVP PRN (18:22)
[2021-04-14] MEDS: Insulin DETEMIR 100 UNIT/ML X5UNITS SUBQ SCH (20:32)
[2021-04-14] MEDS: Mirtazapine 15 MG TABLET PO SCH (20:37)
[2021-04-15 00:44] LABS: Basophils % 0.5 %; Eosinophils % 0.1 %; Hematocrit 27.8 % (35.3-44.9); Hemoglobin 9.3 g/dL (11.5-15.4); Immature Granulocytes % 0.2 % (0-4); Lymphocytes # 2.6 K/mcL (0.6-4.6); Lymphocytes % 30.7 %; Mean Corpuscular HGB Conc 33.5 g/dL (31.6-35.5); Mean Corpuscular Hemoglobin 31.7 pg (28.0-33.3); Mean Corpuscular Volume 94.9 fL (83.0-100.0); Monocytes # 0.3 K/mcL (0.0-1.3); Neutrophils # 5.5 K/mcL (1.6-8.9); Platelet Count 205 K/mcL (140-400); Red Blood Count 2.93 M/mcL (3.82-4.97); Red Cell Distribution Width 13.7 % (11.5-14.5); Segmented Neutrophils % 64.5 %; White Blood Count 8.5 K/mcL (4.3-11.1)
[2021-04-15 01:03] LABS: BUN/Creatinine Ratio 24 (6-26); Blood Urea Nitrogen 20 mg/dL (8-23); Calcium 9.4 mg/dL (8.6-10.3); Carbon Dioxide 25 mEq/L (23-29); Chloride 100 mEq/L (98-107); Glucose 244 mg/dL (70-105); Osmolality,Calculated 287 (280-300); Potassium 4.5 mEq/L (3.5-5.1); Sodium 133 mEq/L (136-145); eGFR For African Americans > 60 (> 60); eGFR For Non-African Americans > 60 (> 60)
[2021-04-15] MEDS: Heparin 25,000UNIT/250ML 1/2NS 25,000 UNIT/250 ML IV.SOLN IVC SCH ×2 (01:22→02:30)
[2021-04-15] MEDS: Metoprolol XL (24 HR) Succ 50 MG TAB.ER.24H PO SCH ×3 (01:43→20:59)
[2021-04-15] MEDS: Levalbuterol Neb 1.25 MG/3 ML IH SCH ×4 (03:45→19:35)
[2021-04-15] MEDS: Insulin LISPRO 300 UNITS/3 ML VIAL SUBQ SCH ×4 (07:26→20:45)
[2021-04-15] MEDS ORDERED: *HR* Heparin 10,000 UNIT/10 ML VIAL ONE (08:25)
[2021-04-15] MEDS ORDERED: ISOVUE-370 200 ML INFUS..BTL ONE (08:26)
[2021-04-15] MEDS ORDERED: Nitroglycerin 1,000 MCG/5 ML VIAL IV ONE (08:26)
[2021-04-15] MEDS ORDERED: Heparin 1,000 UNITS/500 mL 500 ML ONE (08:26)
[2021-04-15] MEDS ORDERED: 0.9 % Sodium Chloride 2,000 ML ONE (08:26)
[2021-04-15] MEDS ORDERED: *HR* FentaNYL (PF) 100 MCG/2 ML VIAL ONE (08:35)
[2021-04-15] MEDS ORDERED: *HR* Midazolam HCl 2 MG/2 ML VIAL ONE (08:35)
[2021-04-15] MEDS ORDERED: 0.9 % Sodium Chloride 1,000 ML ONE (08:54)
[2021-04-15] MEDS: Albumin 25% 25gram/100mL 25 GM/100 ML IV.SOLN IVC SCH (09:02)
[2021-04-15] MEDS: Aspirin Enteric Coated 81 MG Tablet PO SCH (11:25)
[2021-04-15] MEDS: Thiamine (B-1) 100 MG TABLET PO SCH (11:25)
[2021-04-15] MEDS: Famotidine 20 MG TABLET PO SCH (11:25)
[2021-04-15] MEDS: Folic Acid 1 MG TABLET PO SCH (11:25)
[2021-04-15] MEDS: predniSONE 20 MG TABLET PO SCH (11:25)
[2021-04-15] MEDS: Vitamin B Complex/Vit C/Vit E 1 EACH TABLET PO SCH (11:25)
[2021-04-15] MEDS: lisinopriL 5 MG TABLET PO SCH ×2 (11:26→11:46)
[2021-04-15] MEDS: Furosemide 20 MG TABLET PO SCH (11:26)
[2021-04-15] MEDS: Apixaban 5 MG TABLET PO SCH (14:09)
[2021-04-15] MEDS ORDERED: 0.9 % Sodium Chloride 500 ML IV ONE (20:41)
[2021-04-15] MEDS: Insulin DETEMIR 100 UNIT/ML X5UNITS SUBQ SCH (20:45)
[2021-04-15] MEDS: Mirtazapine 15 MG TABLET PO SCH (20:47)
[2021-04-16 01:37] LABS: Basophils % 0.3 %; Eosinophils % 0.1 %; Hematocrit 26.1 % (35.3-44.9); Hemoglobin 8.6 g/dL (11.5-15.4); Immature Granulocytes % 0.3 % (0-4); Lymphocytes # 2.1 K/mcL (0.6-4.6); Lymphocytes % 24.1 %; Mean Corpuscular Hemoglobin 31.6 pg (28.0-33.3); Monocytes # 0.6 K/mcL (0.0-1.3); Monocytes % 6.6 %; Neutrophils # 6.1 K/mcL (1.6-8.9); Platelet Count 188 K/mcL (140-400); Red Blood Count 2.72 M/mcL (3.82-4.97); Red Cell Distribution Width 13.9 % (11.5-14.5); Segmented Neutrophils % 68.6 %; White Blood Count 8.8 K/mcL (4.3-11.1)
[2021-04-16 01:54] LABS: BUN/Creatinine Ratio 25 (6-26); Blood Urea Nitrogen 21 mg/dL (8-23); Calcium 8.9 mg/dL (8.6-10.3); Carbon Dioxide 26 mEq/L (23-29); Chloride 99 mEq/L (98-107); Glucose 287 mg/dL (70-105); Osmolality,Calculated 287 (280-300); Potassium 4.5 mEq/L (3.5-5.1); Sodium 132 mEq/L (136-145); eGFR For African Americans > 60 (> 60); eGFR For Non-African Americans > 60 (> 60)
[2021-04-16] MEDS: Levalbuterol Neb 1.25 MG/3 ML IH SCH ×2 (03:43→08:00)
[2021-04-16] MEDS: Metoprolol XL (24 HR) Succ 50 MG TAB.ER.24H PO SCH (07:54)
[2021-04-16] MEDS: Thiamine (B-1) 100 MG TABLET PO SCH (07:54)
[2021-04-16] MEDS: Famotidine 20 MG TABLET PO SCH (07:54)
[2021-04-16] MEDS: lisinopriL 5 MG TABLET PO SCH (07:54)
[2021-04-16] MEDS: Folic Acid 1 MG TABLET PO SCH (07:54)
[2021-04-16] MEDS: Vitamin B Complex/Vit C/Vit E 1 EACH TABLET PO SCH (07:54)
[2021-04-16] MEDS: Aspirin Enteric Coated 81 MG Tablet PO SCH (07:54)
[2021-04-16] MEDS: Insulin LISPRO 300 UNITS/3 ML VIAL SUBQ SCH (07:54)
[2021-04-16] MEDS: Furosemide 20 MG TABLET PO SCH (07:54)
[2021-04-16] MEDS: Apixaban 5 MG TABLET PO SCH (07:55)
[2021-04-16] MEDS ORDERED: lisinopriL 5 MG TABLET PO SCH (09:00)
[2021-04-16 10:17] VITALS: BP 90/56; PULSE 91; TEMP 98.2; O2SAT 96
== END 2021-04-16 11:54 | disposition home or self-care (01) | DRG 280 ==
LOC: EMEROOARM 11:31 → 2NNU 11:31 → SUATTDRO 18:56 → 2NNU 19:53 → 2ANU 04-14 12:18
PROVIDERS: ADMIT Hospitalist; ATTEND Registered Nurse